=== PATIENT | male | born 1945 | race Caucasian/White ===

== ENCOUNTER → 2023-03-27 06:32 | Day surgery (SDC) | payer MEDICARE, BC, SELFPAY | LOC: GI 06:32 | PROVIDERS: ATTENDING PHYSICIAN Specialist | DX: Z12.11 Encounter for screening for malignant neoplasm of colon (principal); R00.1 Bradycardia, unspecified; Z53.8 Procedure and treatment not carried out for other reasons; Z86.010 Personal history of colon polyps | CPT/HCPCS: G0105; 93005 ==

== ENCOUNTER 2023-05-24 07:12 | Day surgery (SDC) | payer MEDICARE, BC, SELFPAY ==
[2023-05-24] VITALS (9 sets, daily range): BP systolic 90–174; BP diastolic 51–88; BMI 31.0
[2023-05-24 08:13] LABS: ALT (SGPT) 26 U/L (0-50); AST (SGOT) 36 U/L (17-59); Albumin 4.5 g/dl (3.5-5.0); Alkaline Phosphatase 96 U/L (38-126); Blood Urea Nitrogen 16 mg/dl (9-20); Calcium 9.5 mg/dl (8.4-10.2); Carbon Dioxide 26 mmol/L (22-30); Chloride 104 mmol/L (98-107); Estimated Creatinine Clearance 97 ml/min; Glucose 114 mg/dl (70-99); Potassium 4.3 mmol/L (3.5-5.1); Sodium 135 mmol/L (135-145); Total Bilirubin 0.9 mg/dl (0.2-1.3); Total Protein 7.2 g/dl (6.3-8.2); eGFR > 60.00
[2023-05-24 08:24] LABS: Hematocrit 40.5 % (39.0-52.0); Mean Corp Hgb Conc. 34.6 g/dL (33.0-37.0); Mean Corpuscular Hgb 31.3 pg (27.0-31.0); Mean Corpuscular Volume 90.4 fL (80.0-94.0); Mean Platelet Volume 11.5 fL (7.4-10.4); Platelet Count 134 10^3/uL (130-400); Red Blood Cell Count 4.48 10^6/uL (4.70-6.10); Red Cell Dist. Width 13.4 % (11.5-14.5); White Blood Cell Count 4.6 10^3/uL (4.8-10.8)
[2023-05-24 09:45] LABS: ACT-LR - POC 294 Seconds (116-155)
--- NOTE | 2023-05-24 10:08 | ITS.CL.CATH ---
Children Counselor - Catheterization
Cardiac Catheterization
Procedure Report:
LEFT HEART CATHETERIZATION
Date of Procedure: May 24, 2023
Referring: Best Hudson D.O.
PROCEDURES:
1. Left heart catheterization, coronary angiogram.
2. Ultrasound-guided access.
3. Functional physiologic assessment using IFR of proximal RCA.
INDICATION: Mr. Fu is a 77-year-old gentleman with past medical history of hyperlipidemia, significantly elevated coronary calcium score, frequent PVCs, hypertension who had 1 isolated episode of atypical chest discomfort which was left-sided
lasting a few seconds and ongoing dyspnea on exertion with frequent PVCs and is now being referred for a left heart catheterization to rule out obstructive CAD and ischemic PVCs. His outpatient echocardiogram is scheduled in June.
ACCESS: Right radial artery, 6 Setswana sheath, under ultrasound guidance
HEMODYNAMICS : (mmHg)
AO (s/d) : 125/70
LV (s/d) : 123/10
LVEDP : 16
CORONARY FINDINGS
DOMINANCE: Right
LEFT MAIN: Left main artery is a large-caliber vessel which gives rise to the left anterior descending artery and the left circumflex artery. There is mild diffuse atherosclerotic plaque.
LEFT ANTERIOR DESCENDING: The left anterior descending artery is a large-caliber vessel which gives rise to 2 small to medium caliber diagonal branches as it courses through the anterior interventricular groove towards the apex. There is mild to
moderate degree of ectasia and coronary slow flow was noted which improves with intracoronary nitroglycerin. There is a 50 to 60% ostial D2 stenosis.
CIRCUMFLEX: The left circumflex artery is a medium to large caliber vessel which gives rise to 1 major branching obtuse marginal branch and a medium caliber left posterolateral branch. Left circumflex and its branches are moderately ectatic with
slow flow which improves with intracoronary nitroglycerin. There is mild diffuse atherosclerotic plaque.
RIGHT CORONARY ARTERY: The right coronary artery is a large-caliber, dominant vessel which gives rise to the right posterior descending artery and the right posterolateral system. There is a 60 to 70% proximal RCA focal napkin ring stenosis and 40
to 50% distal RCA stenosis before the takeoff of the RPDA. iFR was performed to assess the proximal RCA stenosis which was negative at 0.96.
HEMODYNAMIC ASSESSMENT OF THE PROXIMAL RCA WITH A VOLCANO OMNI WIRE: The origin of the right coronary artery was cannulated with a 6 Fr JR4 guide catheter. Intravenous heparin was administered and the ACT was followed during the procedure. Two
hundred micrograms of intracoronary nitroglycerin was given through the guide catheter. A [place] Omni wire was advanced to the guide catheter tip and normalized in the ostial RCA. The Omni wire was then carefully manipulated across the stenosis
in the proximal RCA with the iFR above the ischemic threshold serially measuring 0.97, 0.97, and 0.96. The Omni wire was then pulled back to the ostial RCA where the Pd/Pa measured 1.0 confirming no baseline drift in pressure readings.
SEDATION: 36 minutes of procedural sedation was utilized. An independent medical pathology teacher was present to assist with and help manage the patient's level of consciousness and physiologic status.
RADIATION SUMMARY: Fluoro Time (min): 5.7, Dose (mGy): 401.46, DAP (Gy.cm2) : 28.5
Closure Device: Vascular band over right radial artery, 11 cc of
CONCLUSIONS
1. Coronary arteries are moderately ectatic in nature with diffuse coronary slow flow which improves with intracoronary nitroglycerin.
2. Proximal RCA has a 60 to 70% focal napkin ring-type stenosis which is IFR negative at 0.96.
3. 40 to 50% distal RCA stenosis.
4. There is 50 to 60% ostial D2 stenosis which is a small caliber vessel.
5. Mildly elevated LVEDP at 16 mmHg
RECOMMENDATIONS
1. Wean radial band per protocol.
2. Full echocardiogram as scheduled to assess biventricular function and rule out any significant valvular disease.
3. Aggressive management of cardiovascular risk factors.
4. Defer management of PVCs and Mobitz type I heart block to primary rn internship.
Copy to: Best Hudson D.O.
Rosa Isela Bullock MD, FACC, [facility]
== END 2023-05-24 12:57 | disposition home or self-care (01) ==
LOC: CATH 07:12
PROVIDERS: ATTENDING PHYSICIAN Internal Medicine Interventional Cardiology; FAMILY PHYSICIAN Family Medicine; OTHER PHYSICIAN Internal Medicine Cardiovascular Disease
DX: I25.10 Atherosclerotic heart disease of native coronary artery without angina pectoris (principal); I10 Essential (primary) hypertension; E78.5 Hyperlipidemia, unspecified; R07.89 Other chest pain; R06.09 Other forms of dyspnea
CPT/HCPCS: 99152; 99153; 76937; 80053; 85027; 85347; 93458; 93571; C1769; C1894

== ENCOUNTER → 2023-07-04 12:44 | Outpatient (REF) | payer MEDICARE, BC, SELFPAY ==
[2023-07-04 15:57] LABS: ALT (SGPT) 27 U/L (0-50); AST (SGOT) 39 U/L (17-59); Total CK 158 U/L (55-170)
[2023-07-04 16:08] LABS: CKMB 3.4 ng/ml (0.0-2.4)
== END ==
LOC: HWRCS 12:44
PROVIDERS: ATTENDING PHYSICIAN Internal Medicine Cardiovascular Disease; FAMILY PHYSICIAN Family Medicine
DX: R07.89 Other chest pain (principal); R06.09 Other forms of dyspnea; I49.3 Ventricular premature depolarization
CPT/HCPCS: 36415; 82550; 82553; 84450; 84460; 93306

== ENCOUNTER 2023-09-21 12:49 | Day surgery (SDC) | payer MEDICARE, BC, SELFPAY ==
[2023-09-21 13:18] VITALS: BMI 31.0
[2023-09-21 13:20] LABS: Hematocrit 35.4 % (39.0-52.0); Hemoglobin 12.3 g/dL (13.0-18.0); Mean Corp Hgb Conc. 34.7 g/dL (33.0-37.0); Mean Corpuscular Hgb 31.3 pg (27.0-31.0); Mean Corpuscular Volume 90.1 fL (80.0-94.0); Mean Platelet Volume 11.5 fL (7.4-10.4); Platelet Count 194 10^3/uL (130-400); Red Blood Cell Count 3.93 10^6/uL (4.70-6.10); Red Cell Dist. Width 13.4 % (11.5-14.5); White Blood Cell Count 5.3 10^3/uL (4.8-10.8)
[2023-09-21 13:40] LABS: Blood Urea Nitrogen 18 mg/dl (9-20); Calcium 9.3 mg/dl (8.4-10.2); Carbon Dioxide 24 mmol/L (22-30); Chloride 104 mmol/L (98-107); Estimated Creatinine Clearance 83 ml/min; Glucose 97 mg/dl (70-99); Potassium 4.3 mmol/L (3.5-5.1); Sodium 137 mmol/L (135-145); eGFR > 60.00
[2023-09-21 14:30] VITALS: BP 143/87
[2023-09-21 17:09] VITALS: BP 168/74
--- NOTE | 2023-09-21 17:09 | ITS.CL.PACE ---
Retail Advertising Account Executive - Pacemaker Implant
Pacemaker Implant
Procedure Report:
Primary Care Doctor: Nikkie Leigh MD
Primary Bulbs Farmworker: Ellen Virgen MD
Procedure Date: 09/21/2023
Name of procedure:
1. Placement of a dual-chamber pacemaker with left bundle area pacing lead for conduction system pacing
2. Subclavian venography
History:
1. Patient is a pleasant 77-year-old male with a past medical history significant for hypertension, hypercholesterolemia, PVCs, symptomatic irreversible bradycardia/sick sinus syndrome.
2. Please refer to H&P for complete history.
Indication:
Symptomatic sick sinus syndrome
Irreversible sinus bradycardia
Intermittent AV block second-degree type I symptomatic
Methods:
After informed consent was obtained, the patient was brought to the EP laboratory in a postabsorptive, nonsedated state. Peripheral IV access was established. Prophylactic antibiotics were administered prior to incision. Continuous ECG, blood
pressure, and pulse oximetry were initiated. Cardioversion patch electrodes were placed on the patient's chest and back. A grounding patch was applied to the skin. Sedation was administered by anesthesia services.
In order to define the extrathoracic portion of the subclavian vein and exclude significant venous obstruction or anomalous anatomy, subclavian venography was performed prior to the procedure. Using the patient's left peripheral IV, contrast was
injected and images were recorded. The left subclavian vein and SVC were found to be widely patent.
The left chest was prepared and draped in a sterile fashion. A time-out was performed. Local anesthesia was injected in the subcutaneous tissue in the infraclavicular area. An incision was made medial to the deltopectoral groove. The subcutaneous
tissue was dissected the level of the prepectoral fascia. A subcutaneous pocket was created. Under fluoroscopic guidance and with the assistance of the images from the venogram, 2 separate venipunctures were made using micropuncture and modified
Seldinger technique. These were performed in the extrathoracic portion of the subclavian vein. Guidewires were passed and two peel-away sheaths were placed, and used to advance leads into the circulation.
Fluoroscopy was used to determine likely anatomic site for left bundle branch pacing. The Medtronic C315 sheath was used to deliver the Medtronic 3830 Selectsecure pacing lead with the helix exposed just exposed from the sheath tip during continuous
monitoring when pacemapping the septum during gentle clockwise rotation to obtain a paced QRS morphology of a W pattern in lead V1. Once the suspected optimal site was identified, lead deployment was performed with several rapid rotations as paced
QRS morphology was intermittently monitored until a paced QRS complex in lead V1 demonstrated development of an R wave (qR or rSR). Unipolar pacing impedance dropped by approximately 100-200 ohms suggesting it had reached the left ventricular
subendocardial. Stable VEgm injury current is present throughout lead position and at end of case. Final unipolar pacing impedance is 1200 Ohms. Unipolar pacing threshold is stable at 1.0 V @ 0.4 ms. The patient had pre-existing narrow QRS. Final
conduction system paced QRS complex duration is 117 ms, LVAT is 53 ms, and peak V5 -> peak V1 timing is 74 ms. The C315 sheath was slit under fluoroscopy ensuring lead position and stability.
Next, the right atrial lead was positioned in the right atrial appendage. Adequate sensing and pacing parameters were found, and no diaphragmatic stimulation was seen with high-output pacing. Both sheaths were split, and the leads were secured to
the fascia with Ethibond ties.
The pocket was flushed with antibiotic solution and hemostasis was assured. The generator was connected to the leads and placed inside the pocket. The device was sutured to the fascia. The wound was closed with 3 running layers of absorbable
suture, and steri-strips were applied. Dressing applied over steri-strips in standard fashion.
Following the procedure, the patient was taken to the recovery area in stable condition. A chest x-ray to be obtained post procedure as routine.
Lead parameters and device programming:
- RA Lead (Medtronic, [id number], #[id number]): Sensing 1.8 mV, Pacing threshold 1.0 V at 0.4 ms, Imp 475 Ohm
- RV Lead (Medtronic, Model 3830, #[id number]): Sensing 12.6 mV, Pacing threshold 0.75 V at 0.4 ms, Imp 665 Ohm
- Device: Medtronic, Model [id number] pacemaker (#[id number]), programmed AAIR to DDDR, mode switch on, lower rate 60 upper track rate 130
Conclusions:
1. Successful placement of a dual-chamber pacemaker with conduction system pacing (LBBAP)
2. Subclavian venography
Recommendations:
1. Admit
2. Chest x-ray.
3. IV antibiotics while the patient is admitted.
4. OK to resume home medications as indicated
5. Pressure dressing to be removed in AM, aquacell to remain until wound check
6. Follow-up will be arranged in the office in 7-10 days post-discharge
Mono Hudson,
Clinical Cardiac Laborer [employer]
cc: Nikkie Leigh MD; Ellen Virgen MD
[2023-09-21 17:30] VITALS: BP 175/95
[2023-09-21] MEDS: TYLENOL 650 MG PO ×2 (17:41→21:51)
[2023-09-21 18:21] VITALS: BP 126/115
--- NOTE | 2023-09-21 18:55 | PTCARENOTE ---
Pt received post pacemaker insertion in left anterior chest. Dressing dry and intact, large pressure dressing placed over aquacell . Immobilizer in place. Pt given tylenol for 4/10 incisional discomfort with some relief. Pt OOB independently,
activity restrictions reviewed with him and his . Pt voiding in small amounts of 100 mls. Telemetry shows atrial paced rhythm.
[2023-09-21] MEDS: ANCEF 5 IV (20:09)
[2023-09-21] MEDS: CRESTOR 20 MG PO (21:51)
[2023-09-22 00:22] VITALS: BP 146/90
[2023-09-22 00:34] VITALS: BP 180/101
[2023-09-22 05:27] VITALS: BP 162/86
[2023-09-22] MEDS: ANCEF 5 IV (05:31)
[2023-09-22 06:00] VITALS: BMI 30.9
[2023-09-22 06:29] LABS: Hematocrit 33.6 % (39.0-52.0); Hemoglobin 11.8 g/dL (13.0-18.0); Mean Corp Hgb Conc. 35.1 g/dL (33.0-37.0); Mean Corpuscular Hgb 31.4 pg (27.0-31.0); Mean Corpuscular Volume 89.4 fL (80.0-94.0); Mean Platelet Volume 11.1 fL (7.4-10.4); Platelet Count 179 10^3/uL (130-400); Red Blood Cell Count 3.76 10^6/uL (4.70-6.10); Red Cell Dist. Width 13.5 % (11.5-14.5); White Blood Cell Count 5.2 10^3/uL (4.8-10.8)
[2023-09-22 06:56] LABS: Blood Urea Nitrogen 16 mg/dl (9-20); Calcium 9.3 mg/dl (8.4-10.2); Carbon Dioxide 23 mmol/L (22-30); Chloride 108 mmol/L (98-107); Estimated Creatinine Clearance 110 ml/min; Glucose 99 mg/dl (70-99); Potassium 4.2 mmol/L (3.5-5.1); Sodium 138 mmol/L (135-145); eGFR > 60.00
[2023-09-22] MEDS: TYLENOL 650 MG PO (07:50)
[2023-09-22] MEDS: COZAAR 100 MG PO (07:50)
[2023-09-22 07:56] VITALS: BP 160/84
[2023-09-22] MEDS: ZETIA 10 MG PO (07:56)
[2023-09-22] MEDS: ASPIR LOW (ENTERIC COATED) 81 MG PO (07:56)
[2023-09-22 08:00] VITALS: BP 155/83
--- NOTE | 2023-09-22 08:16 | W.PN.CARDCBS ---
Addendum entered and electronically signed by Nghia Virgen MD 09/22/23 09:15:
Patient seen, interviewed and examined by me.
Well-appearing, no acute distress
Dressing left upper chest is clean and dry
Regular rate and rhythm with normal S1 and S2, no S3 no S4. There is a grade 1/6 apical holosystolic murmur and no rubs. PMI is normally placed.
Lungs are clear to auscultation bilaterally without wheezes rales or rhonchi.
Abdomen soft nontender nondistended with normoactive bowel sounds
Extremities show trace pretibial edema bilaterally no clubbing or cyanosis.
Neurologic exam is grossly nonfocal.
Agree with advanced practice professionals assessment and plan as noted below
Resume BB
Wound check arranged
Stable for DC home
total DC time 35 min
Original Note:
Today's Communication / Plan
-
Doing well postop day 1
Wound care and postop instructions reviewed
Continue current medical therapy without change
Stable for discharge with follow-up cardiology Care arranged
Impression / Plan
-
PCP: Nikkie Leigh
Bottler Helper: Ellen Virgen
Facilities Officer: Mono Hudson
Impression:
Symptomatic irreversible bradycardia/sick sinus syndrome
Intermittent AV block second-degree type I
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
Nonobstructive coronary artery disease
Hypertension
Hyperlipidemia
PVCs
Renal cyst
BPH
Echo 07/04/2023: EF 55 to 60%, mild concentric LVH, mild biatrial enlargement, no significant valvular disease, mildly dilated aorta sinus of Valsalva 4.1 cm, ST junction 3.0 cm, ascending ao 3.5 cm
Cardiac catheterization 05/24/2023: Coronary arteries are moderately ectatic in nature with diffuse coronary slow flow which improves with intracoronary nitroglycerin. Proximal RCA has a 60 to 70% focal napkin ring-type stenosis which is IFR
negative at 0.96. 40 to 50% distal RCA stenosis. There is 50 to 60% ostial D2 stenosis which is a small caliber vessel. Mildly elevated LVEDP at 16 mmHg
Plan:
-Symptomatic irreversible bradycardia/sick sinus syndrome/intermittent AV block status post dual-chamber Medtronic pacemaker 09/21/2023
-Patient feels great following pacemaker implant. Able to ambulate around unit without cardiac symptoms.
-Pacemaker site stable without hematoma.
-Post procedure EKG shows a paced rhythm at 60 bpm. Review of telemetry occasional PVCs with primarily a paced rhythm
-Postprocedure chest x-ray shows good lead placement and no pneumothorax
-Continue metoprolol, losartan for hypertension
-Continue rosuvastatin and Zetia
-Postop instructions discussed with patient
-Stable for discharge with outpatient cardiology follow-up arranged
Progress Note - Bottler Helper
Subjective
Date of Service: September 22, 2023
Patient seen and examined. Patient sitting up in chair. Patient reports he is feeling well. Denies any specific cardiac complaints. Does note mild throat soreness. Able to ambulate around unit without difficulty.
Objective
Labs:
09/22/23 05:58
09/22/23 05:58
Labs
Hgb 11.8 g/dL (13.0-18.0) L 09/22/23 05:58
Hct 33.6 % (39.0-52.0) L 09/22/23 05:58
Plt Count 179 10^3/uL (130-400) 09/22/23 05:58
Sodium 138 mmol/L (135-145) 09/22/23 05:58
Potassium 4.2 mmol/L (3.5-5.1) 09/22/23 05:58
BUN 16 mg/dl (9-20) 09/22/23 05:58
Creatinine 0.6 mg/dL (0.7-1.3) L 09/22/23 05:58
Glucose 99 mg/dl (70-99) 09/22/23 05:58
Vital Signs and I&O:
Vital Signs
Temp Pulse Resp BP Pulse Ox
98.3 F 60 18 155/83 97
09/22/23 05:27 09/22/23 07:50 09/22/23 08:00 09/22/23 08:00 09/22/23 08:00
Vital Signs
Temp Pulse Resp BP Pulse Ox
98.3 F 60 18 155/83 97
09/22/23 05:27 09/22/23 07:50 09/22/23 08:00 09/22/23 08:00 09/22/23 08:00
Intake & Output
09/20/23 09/21/23 09/22/23 09/23/23
06:59 06:59 06:59 06:59
Intake Total 690 / 690
Output Total 100 / 100
Balance 590 / 590
Physical Exam
Physical Exam
GEN: No distress, awake, Ox3
HEENT: supple, anicteric, mmm
LUNGS: CTA, no wheezes/rales
CV: Reg, S1/S2, no murmur, rub or gallop
ABD: soft, BS+, NT/ND
EXT: No edema, clubbing or cyanosis; pacemaker dressing clean, dry, intact, no evidence of hematoma or infection
NEURO: Gross non-focal
SKIN: No rash, warm, dry, pink
--- NOTE | 2023-09-22 08:55 | PTCARENOTE ---
pt continues to be paced on the monitor, hr in the 70s, vss. pt c/o pain at incision site, Tylenol given as ordered, see MAR. pt educated on plan of care and pt verbalized understanding. call thapa within reach.
--- NOTE | 2023-09-22 08:56 | W.DS.TRANS ---
DC Summary - Radiology Therapist
-
Discharge Instructions:
Discharge Diagnosis/Procedures Heart block, s/p pacemaker implant
Diet Low Cholesterol
Driving Restrictions No driving for 1 week
Bathing Restrictions OK to Shower
Instructions:
Stand-Alone Forms: DC Inst - Implanted Device
Changes to Home Medications: No
Discharge Medications:
DC Medications w/original date entered in [facility]
losartan 100 mg tablet 100 mg PO DAILY 03/20/16
ascorbic acid (vitamin C) 500 mg tablet (Vitamin C) 1,000 mg PO DAILY 05/24/23
aspirin 81 mg tablet,delayed release 81 mg PO DAILY 05/24/23
ezetimibe 10 mg tablet (Zetia) 10 mg PO DAILY 05/24/23
cnyesmdyvwq-qmwhgtftc-aom C-Mn 500 mg-400 mg capsule 1 cap PO DAILY 05/24/23
multivitamin 2 tab PO DAILY ##0 05/24/23
omega-3 fatty acids-fish oil 684 mg-1,200 mg capsule,delayed release 1 cap PO DAILY 05/24/23
psyllium 1 packet PO DAILY 05/24/23
albuterol sulfate 90 mcg/actuation aerosol inhaler 1 puff inhalation Q4HPRN PRN wheezing 09/21/23
ginkgo biloba 400 mg capsule 400 mg PO DAILY 09/21/23
glucosamin 375 mg-chond 300 mg-collagen 50 mg-hyaluronic acid 2 mg cap 2 cap PO DAILY 09/21/23
metoprolol succinate 25 mg tablet,extended release 24 hr 12.5 mg (1/2 x 25 mg) PO DAILY #0 tabs 09/21/23
rosuvastatin 20 mg tablet 20 mg PO HS 09/21/23
Home Medication Changes
Pending Results: No
Total time spent discharging patient (in min): 33
[2023-09-22] MEDS: TOPROL XL 12.5 MG PO (09:10)
--- NOTE | 2023-09-22 10:12 | PTCARENOTE ---
d/c instructions read to pt and pt verbalized understanding. ppm site is CDI, immobilizer on. iv and tele removed. pt left w/ belongings from room, instructions and ppm info. pt left via wheelchair with staff member.
--- NOTE | 2023-09-22 17:33 | EDRN ---
Cliff Reed and this RN got verbal consent over the phone for blood exposure labs to be done.
--- NOTE | 2023-09-22 17:42 | EDRN ---
"pt had a procedure in laborer bituminous paving on September 20 and the NEWSPAPER CARRIER who was taking care of Mr. Fu may have gotten blood splattered into his left eye. The NEWSPAPER CARRIER came into the ER Sundayseptember 21 for blood exposure testing. At this time, Cliff SHER (~) and this RN called Ford Fu to obtain verbal consent over the phone for blood exposure testing. Mr Ford Fu gave verbal consent to Michael SHER and this RN. Cliff Reed will call Mr. Fu back with results."
[2023-09-22 19:17] LABS: HIV Combo Negative (Negative)
[2023-09-22 19:30] LABS: Hepatitis B Surface Antigen Negative (Negative)
[2023-09-22 19:48] LABS: Hepatitis B Surface Antibody Negative
[2023-09-22 20:55] LABS: Hepatitis C Antibody Negative (Negative)
== END 2023-09-22 10:21 | disposition home or self-care (01) ==
LOC: CATH 12:49
PROVIDERS: Nurse Practitioner; ATTENDING PHYSICIAN Internal Medicine Cardiovascular Disease; FAMILY PHYSICIAN Family Medicine
DX: I44.1 Atrioventricular block, second degree (principal); I47.10 Supraventricular tachycardia, unspecified; I47.20 Ventricular tachycardia, unspecified; I10 Essential (primary) hypertension; N40.0 Benign prostatic hyperplasia without lower urinary tract symptoms; R53.83 Other fatigue; R06.09 Other forms of dyspnea; Z79.899 Other long term (current) drug therapy; Z79.82 Long term (current) use of aspirin; I49.5 Sick sinus syndrome; R00.8 Other abnormalities of heart beat
CPT/HCPCS: 33208; 71045; 80048; 85027; 86706; 86803; 87340; 87389; 93005; C1769; C1785; C1887; C1892; C1898; Q9967

== ENCOUNTER 2023-10-04 11:28 | Inpatient (IN) | payer MEDICARE, BC, SELFPAY ==
[2023-10-04] VITALS (30 sets, daily range): BP systolic 89–189; BP diastolic 56–113; PULSE 80–89; BMI 31.8
[2023-10-04 06:52] LABS: % Basophils 0.5 % (0-2); % Eosinophils 1.1 % (0-6); % Immature Granulocytes 0.4 % (0-0.5); % Lymphocytes 16.6 % (20.5-51.1); % Monocytes 6.5 % (1.7-9.3); % Neutrophils 74.9 % (42.2-75.2); Absolute Eosinophils 0.1 10^3/uL (0-0.7); Absolute Lymphocytes 1.3 10^3/uL (1.2-3.4); Absolute Monocytes 0.5 10^3/uL (0.1-0.6); Mean Corp Hgb Conc. 34.4 g/dL (33.0-37.0); Mean Corpuscular Hgb 31.4 pg (27.0-31.0); Mean Corpuscular Volume 91.4 fL (80.0-94.0); Mean Platelet Volume 10.8 fL (7.4-10.4); Nucleated Red Blood Cells % 0 % (-); Platelet Count 155 10^3/uL (130-400); Red Cell Dist. Width 13.8 % (11.5-14.5)
[2023-10-04 07:02] LABS: ALT (SGPT) 22 U/L (0-50); AST (SGOT) 39 U/L (17-59); Albumin 3.9 g/dl (3.5-5.0); Alkaline Phosphatase 101 U/L (38-126); Blood Urea Nitrogen 19 mg/dl (9-20); Calcium 9.2 mg/dl (8.4-10.2); Carbon Dioxide 24 mmol/L (22-30); Chloride 104 mmol/L (98-107); Estimated Creatinine Clearance 84 ml/min; Glucose 200 mg/dl (70-99); Potassium 4.4 mmol/L (3.5-5.1); Sodium 138 mmol/L (135-145); Total Bilirubin 0.7 mg/dl (0.2-1.3); Total Protein 6.1 g/dl (6.3-8.2); eGFR > 60.00
--- NOTE | 2023-10-04 07:06 | EDRN ---
Tejinder SHER in room w/ pt at this time.
[2023-10-04 07:13] LABS: NT-proBNP 187 pg/ml; Troponin I 0.014 ng/ml
--- NOTE | 2023-10-04 07:26 | ED.GENMED ---
History of Present Illness
<Prince Rothman Jr., PA-C - Last Filed: 10/04/23 09:16>
General
Chief Complaint: Fainting Sensation
Source: patient
Exam Limitations: none
Time Seen by Provider: 10/04/23 07:03
Nursing documentation reviewed up to this point in time: agreed with
History of Present Illness
History of Present Illness:
77-year-old male past medical history of previous A-fib pacemaker placed 2 weeks ago. This morning woke up and went to the kitchen to prepare breakfast start feel lightheaded cool clammy was able to sit down before passing out. Denies any chest
pain shortness of breath nausea associated. Did feel some discomfort to his neck and throat. Still with some mild pain to the neck but denies additional symptoms otherwise. He does claim that he recently increased her metoprolol from 12.5-25 last
week. Denies ongoing symptoms at this point otherwise.
Past History
<Prince Rothman Jr., PA-C - Last Filed: 10/04/23 09:16>
Past History
ED Past Medical History: HTN
Social History
Tobacco: Non-smoker
Alcohol: None
Family History
Family History: Negative Diabetes
Review of Systems
<Prince Rothman Jr., PA-C - Last Filed: 10/04/23 09:16>
Review of Systems
Allergies reviewed?: Yes
All Other Systems: ROS reviewed and negative except as documented in HPI and ROS
Phy Exam
<Prince Rothman Jr., PA-C - Last Filed: 10/04/23 09:16>
Physical Exam
Physical Exam:
GENERAL: Alert , in no apparent distress
EYE: pupils equal and reactive
NECK: Supple, no significant adenopathy.
ENT: o/p clr, mmm.
CARDIAC: Regular rate and rhythm .
LUNGS: Clear breath sounds bilaterally, no acute respiratory distress, no wheezes/rales/rhonchi
ABDOMEN: Soft, without focal tenderness, no r/g, no cvat
NEUROLOGICAL: Alert and oriented, no focal neuro deficits
SKIN: Warm and dry, skin intact.
MUSCULOSKELETAL: No edema, well perfused.
PSYCH: Normal and appropriate interaction.
Course
<Prince Rothman Jr., TAY - Last Filed: 10/04/23 09:16>
Orders/Labs/Results
Orders:
Orders
10/04/23 06:01
EKG [Electrocardiogram (*1)] Urgent
Reason for Study: Fatigue / Weakness
10/04/23 06:02
EKG- Treatment ONCE
10/04/23 06:36
Cardiac Monitoring- Treatment ONCE
IV Insert/Care/Rem.- Treatment PRN
Interrogate Pacemaker- Treatment ONCE
10/04/23 06:42
Complete Blood Count/With Diff Urgent
Comprehensive Metabolic Panel Urgent
NT-proBNP Urgent
TSH Reflex To Free T4 Urgent
Comment: ADD ON
Troponin I Urgent
10/04/23 07:14
Add On- LAB Urgent
Tests Added?: tsh free t4
Orthostatic VS- Treatment ONCE
10/04/23 07:32
Echo 2D MMode Color/Doppler Urgent
Reason for Study: recent pacemaker insertion rule out fusion
Cardiology Consult: Ellen Virgen
10/04/23 08:57
0.9% Sodium Chloride 500 ml [Nss] 500 ml IV BOLUS
10/04/23 09:06
0.9% Sodium Chloride 500 ml [Nss] 500 ml IV BOLUS
10/04/23 09:07
0.9% Sodium Chloride 500 ml [Nss] 1,000 ml IV BOLUS
10/04/23 09:15
DOPamine 400 MG/D5W 250 ML [DOPamine 400 MG] 400 mg in 250 ml IV PER PROTOCOL
Initial dose in mcg/kg/min, then titrate:: 5
Titrate to keep:: Other
Titrate to keep other:: SBP >100
Titrate by mcg/kg/min:: 1-2 mcg/kg/min
Frequency of titrations (minutes):: 15
Maximum dose in ICU in mcg/kg/min:: 20
Maximum dose in IMU in mcg/kg/min:: 10
Begin to taper infusion when:: Remained at goal for 4hrs
Taper by mcg/kg/min:: 1-2 mcg/kg/min
Frequency of taper (minutes) if patient maintains goal:: 30
Taper to off?: Yes
If infusion off & no longer maintaining goal:: Contact Provider
Abnormal Lab Results
10/04/23
06:42
RBC 3.50 L 10^6/uL
(4.70-6.10)
Hgb 11.0 L g/dL
(13.0-18.0)
Hct 32.0 L %
(39.0-52.0)
MCH 31.4 H pg
(27.0-31.0)
MPV 10.8 H fL
(7.4-10.4)
Lymphocytes % 16.6 L %
(20.5-51.1)
Glucose 200 H mg/dl
(70-99)
Total Protein 6.1 L g/dl
(6.3-8.2)
10/04/23 06:42
10/04/23 06:42
Vital Signs
Initial and Last Documented VS:
Initial Vital Signs
Pulse Resp
73 15
10/04/23 06:18 10/04/23 06:18
Last Documented Vital Signs
Pulse Resp BP Pulse Ox
83 29 113/71 98
10/04/23 09:04 10/04/23 09:04 10/04/23 09:04 10/04/23 09:11
<Toño Scott, DO - Last Filed: 10/04/23 09:12>
Orders/Labs/Results
Orders:
Orders
10/04/23 06:01
EKG [Electrocardiogram (*1)] Urgent
Reason for Study: Fatigue / Weakness
10/04/23 06:02
EKG- Treatment ONCE
10/04/23 06:36
Cardiac Monitoring- Treatment ONCE
IV Insert/Care/Rem.- Treatment PRN
Interrogate Pacemaker- Treatment ONCE
10/04/23 06:42
Complete Blood Count/With Diff Urgent
Comprehensive Metabolic Panel Urgent
NT-proBNP Urgent
TSH Reflex To Free T4 Urgent
Comment: ADD ON
Troponin I Urgent
10/04/23 07:14
Add On- LAB Urgent
Tests Added?: tsh free t4
Orthostatic VS- Treatment ONCE
10/04/23 07:32
Echo 2D MMode Color/Doppler Urgent
Reason for Study: recent pacemaker insertion rule out fusion
Cardiology Consult: Ellen Virgen
10/04/23 08:57
0.9% Sodium Chloride 500 ml [Nss] 500 ml IV BOLUS
10/04/23 09:06
0.9% Sodium Chloride 500 ml [Nss] 500 ml IV BOLUS
10/04/23 09:07
0.9% Sodium Chloride 500 ml [Nss] 1,000 ml IV BOLUS
10/04/23 09:15
DOPamine 400 MG/D5W 250 ML [DOPamine 400 MG] 400 mg in 250 ml IV PER PROTOCOL
Initial dose in mcg/kg/min, then titrate:: 5
Titrate to keep:: Other
Titrate to keep other:: SBP >100
Titrate by mcg/kg/min:: 1-2 mcg/kg/min
Frequency of titrations (minutes):: 15
Maximum dose in ICU in mcg/kg/min:: 20
Maximum dose in IMU in mcg/kg/min:: 10
Begin to taper infusion when:: Remained at goal for 4hrs
Taper by mcg/kg/min:: 1-2 mcg/kg/min
Frequency of taper (minutes) if patient maintains goal:: 30
Taper to off?: Yes
If infusion off & no longer maintaining goal:: Contact Provider
Abnormal Lab Results
10/04/23
06:42
RBC 3.50 L 10^6/uL
(4.70-6.10)
Hgb 11.0 L g/dL
(13.0-18.0)
Hct 32.0 L %
(39.0-52.0)
MCH 31.4 H pg
(27.0-31.0)
MPV 10.8 H fL
(7.4-10.4)
Lymphocytes % 16.6 L %
(20.5-51.1)
Glucose 200 H mg/dl
(70-99)
Total Protein 6.1 L g/dl
(6.3-8.2)
10/04/23 06:42
10/04/23 06:42
Vital Signs
Initial and Last Documented VS:
Initial Vital Signs
Pulse Resp
73 15
10/04/23 06:18 10/04/23 06:18
Last Documented Vital Signs
Pulse Resp BP Pulse Ox
83 29 113/71 98
10/04/23 09:04 10/04/23 09:04 10/04/23 09:04 10/04/23 09:11
<Prince Rothman Jr., PA-C - Last Filed: 10/04/23 09:16>
MDM/Problems Addressed
MDM/Problems Addressed:
77-year-old male presenting to the emergency department today for concerns of lightheadedness cool and clammy prior to arrival while he was in standing up. He was able to sit down prior to passing out. Recently had a pacemaker placed 2 weeks ago.
This was interrogated without significant events. Does have occasional PVCs and occasional bigeminy. He appears very well here in no distress. Does come to have some mild neck pain posterior pharynx is normal in appearance. No upper respiratory
symptoms recently. Labs obtained showing an elevated sugar level of 200 but otherwise labs are normal troponin negative.
0715: Cardiology consulted considering patient's recent pacemaker insertion. Cardiology recommends echo for further assessment while here in the ER.
0850: Received from cardiology about the patient's echo results showing pericardial effusion likely explaining patient's symptoms. Concern for cardiac tamponade patient started on fluids as well as dopamine on reassessment patient is still
asymptomatic here but blood pressure has been trending downward throughout ER stay most recent blood pressure was 89/70 a half an hour prior the blood pressure was 104/76.
<Prince Rothman Jr., PA-C - Last Filed: 10/04/23 09:16>
*Critical Care Note
Total Time (30-74mins, 75-104mins- exclusive of procedures): Critical care statement:
ED Attending Note
<Prince Rothman Jr., PA-C - Last Filed: 10/04/23 09:16>
-
Portions of this chart may have been created with voice recognition software.� Occasional wrong word or��sound alike� substitutions may have occurred due to the inherent limitations of voice recognition software.
<Toño Scott DO - Last Filed: 10/04/23 09:12>
ED Attending Note
Patient seen and examined by attending physician: Yes
I performed the substantive portion of visit, reviewed & personally made and approve the management plan that is documented in note by myself or BREANNE.: Yes
ED Attending Note:
I have seen and evaluated the patient with a [id number] encounter. I have spoken to the advance practicer provider and involved in the medical history, the physical exam, medical decision making.
Evaluation and management service: agree unless noted differently below.
Results interpretation: agree unless noted differently below.
Focused HPI: 77-year-old male presenting with lightheadedness, weakness and fatigue. Patient had pacemaker placed 2 weeks ago
Physical exam: Sitting in bed comfortably. Heart regular rate and rhythm
Medical Decision Making: Echo shows tamponade physiology. Cardiology at bedside immediately. Will bring to the Experimental Physicist. Will consider dopamine pending reassessment after fluid
Discharge Plan
Departure
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
Date of Disposition: 10/04/23
Time of Disposition: 09:15
Admit to: Telemetry
Admit to doctor: Anu
Presentation/result/management discussed w/ accepting MD/DO: Cardiology
Patient with high blood pressure during this ER visit?: No
Condition: Fair
Covid-19: Not Applicable
Discharge Problem:
Acute pericardial effusion
Prescriptions:
No Action
losartan 100 MG tablet
100 mg PO DAILY
aspirin 81 mg Tablet,Delayed Release (Dr/Ec)
81 mg PO DAILY
multivitamin Tablet
2 tab PO DAILY Qty: 0
psyllium Packet
1 packet PO DAILY
ascorbic acid (vitamin C) [Vitamin C] 500 mg Tablet
1,000 mg PO DAILY
ezetimibe [Zetia] 10 mg Tablet
10 mg PO DAILY
uznqefjikvk-zqxbntlhw-dmd C-Mn 500-400 mg Capsule
1 cap PO DAILY
omega-3 fatty acids-fish oil 684-1,200 mg Capsule,Delayed Release(Dr/Ec)
1 cap PO DAILY
albuterol sulfate 90 mcg/actuation Hfa Aerosol Inhaler
1 puff INHALATION Q4HPRN PRN (Reason: wheezing)
rosuvastatin 20 mg Tablet
20 mg PO HS
glirfbnw-bqmd-fjklok-hyalur ac 253-450-60-2 mg Capsule
2 cap PO DAILY
ginkgo biloba 400 mg Capsule
400 mg PO DAILY
metoprolol succinate 25 mg Tablet Extended Release 24 Hr
12.5 mg PO DAILY Qty: 0 0RF
Referrals:
Nikkie Leigh MD [Family Provider] -
Interventions
Interventions:
*Risk Screen - Suicide Last Done: 10/04/23 06:40
*General Assessment Last Done: 10/04/23 06:40
*Neglect/Abuse Screening Last Done: 10/04/23 06:40
ED- Fall Risk Assessment Last Done: 10/04/23 07:24
*ED COVID-19 Vaccine History Last Done: 10/04/23 06:40
ED- Cardiac Assessment Last Done: 10/04/23 07:24
ED- Neurological Assessment Last Done: 10/04/23 07:24
Discharge Date and Time
Print Language: MONEGASQUE
[2023-10-04 08:58] LABS: TSH Reflex To Free T4 2.76 uIU/ml (0.47-4.68)
--- NOTE | 2023-10-04 09:00 | EDRN ---
Tejinder SHER in room w/ pt at this time.
[2023-10-04] MEDS: NSS 1000 IV (09:07)
--- NOTE | 2023-10-04 09:09 | EDRN ---
Dr. Duke was in to see pt. Dr. House in room now w/ pt. Pao w/ cardiology in room w/pt. Interventional radiologist in room w/ pt.
--- NOTE | 2023-10-04 09:20 | CON.CAR ---
Addendum entered and electronically signed by Ellen Virgen MD 10/04/23 10:09:
I saw and examined the patient.
The Studio Associate's note was reviewed and I agree with the note.
Comment: Patient seen and independently examined by me. Tells me that this morning he felt more dizzy, lightheaded and like he was going to pass out. He has not been feeling well. His stated he was sweaty and diaphoretic. Pacemaker implant
approximately 2 weeks ago. Echocardiogram consistent with impending tamponade. Blood pressure had decreased to 89 mmHg systolic. Patient given IV fluids at 100/per hour. Patient stabilized. EKG abnormal with likely noncapture of pacemaker and
intermittent heart block. Consulted electrophysiology and interventional cardiology. Patient will be urgently taken to the cardiac Illustrator Set for pericardiocentesis and for electrophysiology assessment.
Discussed at length with the patient and his at the bedside. They understand the plan.
Critical care time approximately 35 minutes reviewing records, discussing with the ER physicians, nursing staff, cardiac cath staff, EP staff and coordinating care
Original Note:
Consultation
Consultation Request
Date/Time Consultation Performed: 10/04/23
Requesting Provider: Judson Rothman PA-C
Performing Provider: Pao Crawley PA-C for Dr. Ellen Virgen
Reason for Consultation: presyncope
Medical History
-
Chief Complaint: presyncope
History of Present Illness:
Patient is a 77 yo M with PMH of recent Medtr[employer] PPM placement 09/21/23 due to SSS/symptomatic bradycardia who presented to ER this AM with complaints of lightheadedness, presyncope. States he got up to make breakfast this AM and felt cool, clammy,
and lightheaded. He did not have syncope however felt as though he was going to pass out and sat down. Denies CP however notes some discomfort in next/throat. Came to ER for evaluation. EKG with concern for malfunction of PPM. ECHO with evidence of
large pericardial effusion. Hypotensive in ER, improved with IV fluid. Cardiology consulted for evaluation
PMH:
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
Nonobstructive coronary artery disease
Hypertension
Hyperlipidemia
PVCs
Renal cyst
BPH
Past Medical History
Past Medical History: Other (in HPI)
Social History
Tobacco: Former Smoker
Alcohol: Occasional
Personal:
Living: With Family
Employment: Retired
Allergies / Home Medications
Allergy/AdvReac Type Severity Reaction Status Date / Time
No Known Allergies Allergy Verified 10/04/23 06:11
�Medication �Instructions �Recorded �Confirmed �Type
losartan 100 mg tablet 100 mg PO DAILY 03/20/16 09/21/23 History
ascorbic acid (vitamin C) 500 mg 1,000 mg PO DAILY 05/24/23 09/21/23 History
tablet (Vitamin C)
aspirin 81 mg tablet,delayed 81 mg PO DAILY 05/24/23 09/21/23 History
release
ezetimibe 10 mg tablet (Zetia) 10 mg PO DAILY 05/24/23 09/21/23 History
pyfwxkyjnsu-ucufkmcfa-lnp C-Mn 500 1 cap PO DAILY 05/24/23 09/21/23 History
mg-400 mg capsule
multivitamin 2 tab PO DAILY ##0 05/24/23 09/21/23 History
omega-3 fatty acids-fish oil 684 1 cap PO DAILY 05/24/23 09/21/23 History
mg-1,200 mg capsule,delayed release
psyllium 1 packet PO DAILY 05/24/23 09/21/23 History
albuterol sulfate 90 mcg/actuation 1 puff inhalation Q4HPRN PRN 09/21/23 09/21/23 History
aerosol inhaler wheezing
ginkgo biloba 400 mg capsule 400 mg PO DAILY 09/21/23 09/21/23 History
glucosamin 375 mg-chond 300 2 cap PO DAILY 09/21/23 09/21/23 History
mg-collagen 50 mg-hyaluronic acid
2 mg cap
metoprolol succinate 25 mg 12.5 mg (1/2 x 25 mg) PO DAILY #0 09/21/23 Rx
tablet,extended release 24 hr tabs
rosuvastatin 20 mg tablet 20 mg PO HS 09/21/23 09/21/23 History
Review of Systems
-
History Source: Patient and Family
All other systems: Negative unless noted
Physical Exam
Vital Signs
Pulse Resp BP Pulse Ox
83 29 113/71 98
10/04/23 09:04 10/04/23 09:04 10/04/23 09:04 10/04/23 09:11
Lab Results
10/04/23 06:42
10/04/23 06:42
Troponin I 0.014 ng/ml 10/04/23 06:42
Lxa-N-Vjanlfkhjbi Pept 187 pg/ml 10/04/23 06:42
Physical Exam
General: No Apparent Distress and Comfortable
HEENT: Normocephalic, Anicteric and Moist Mucous Membranes
Respiratory: Clear and Non Labored Respirations
Cardiac: S1/S2, Regular Rhythm and Other (ectopy)
GI: Soft, Non Tender, Non Distended and Normal Bowel Sounds
Musculoskeletal: No Clubbing, No Cyanosis and No Edema
Skin: Warm and Dry
Neuro: AO x 3
Impression / Plan
-
PCP: Nikkie Leigh
Arc Cutter Plasma Arc: Ellen Virgen
Fire Regulator: Mono Hudson
Impression:
Presentation with lightheadedness, presyncope
Large pericardial effusion with evidence of tamponade by echo
Hypotension
Concern for PPM lead malfunction/migration
Anemia
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
Nonobstructive coronary artery disease by cath 05/24/23
Hypertension
Hyperlipidemia
PVCs
Renal cyst
BPH
Echo 07/04/2023: EF 55 to 60%, mild concentric LVH, mild biatrial enlargement, no significant valvular disease, mildly dilated aorta sinus of Valsalva 4.1 cm, ST junction 3.0 cm, ascending ao 3.5 cm
Cardiac catheterization 05/24/2023: Coronary arteries are moderately ectatic in nature with diffuse coronary slow flow which improves with intracoronary nitroglycerin. Proximal RCA has a 60 to 70% focal napkin ring-type stenosis which is IFR
negative at 0.96. 40 to 50% distal RCA stenosis. There is 50 to 60% ostial D2 stenosis which is a small caliber vessel. Mildly elevated LVEDP at 16 mmHg
Plan:
-Patient with recent PPM 09/21/23 presents back to ER with lightheadedness, presyncope, clamminess noted this AM.
-echo 10/03 with evidence of large pericardial effusion and degree of tamponade
-concern by review of EKG for lead malfunction/migration
-for urgent pericardiocentesis in slab polisher
-NPO
-hypotension in ER improved with IV fluids. could start dopamine @3 if needed
-may require lead revision following pericardiocentesis
-d/w patient and at bedside. communicated with ER PA/physician. coordinated with slab polisher
-CCT 33 minutes
Data Reviewed
-
EKG: Tracing Personally Visualized and interpreted
Medical Tests (Nuc Med, Echo etc): Report Reviewed by me
Labs: Labs Reviewed by me
Old Records: Reviewed
--- NOTE | 2023-10-04 09:24 | EDRN ---
Gracia LOPEZ received report at this time. Pt to laborer stores now.
[2023-10-04 10:59] LABS: Body Fluid Glucose 84 mg/dl; Body Fluid LDH 306 U/L; Body Fluid Protein 5.4 g/dl
[2023-10-04] MEDS: TORADOL 15 MG IV ×2 (11:00→11:02)
[2023-10-04] MEDS: COLCHICINE 0.6 MG PO ×2 (11:10→20:20)
--- NOTE | 2023-10-04 12:07 | PTCARENOTE ---
Received patient at 1115 after Pericardiocentesis and drain placement left chest. Patient recently here for PPM with healing incision left upper chest. Patient was having 8-10/10 pain post drain placement, patient now appears more comfortable and
states his pain is down to a 1-2/10. Patient seen by Dr. Virgen and to have lead revision later this afternoon. Dressing left chest is dry and intact, bloody drainage in canister, monitoring VS- at the bedside, call thapa in reach.
--- NOTE | 2023-10-04 12:23 | ITS.CL.PN ---
[facility] Care Management - Procedure Note
Procedure
Procedure Note:
PERICARDIOCENTESIS REPORT
Date: October 04, 2023
Referring: Ellenadrianna Wilsonlinette
Indications: Cardiac tamponade
Procedure: Pericardiocentesis via transapical approach under echocardiographic guidance
After obtaining consent, the patient was brought to the cardiac slab lifting supervisor and placed in a recumbent position. Echocardiogram was used to ascertain the best approach vector. An transapical approach was selected. The site was anesthetized with 1%
lidocaine. Under ultrasound guidance, a micropuncture needle was advanced into the pericardial space under negative pressure. After obtaining flashback of pericardial fluid, the micropuncture wire was advanced into the pericardial space and the
needle was removed. The micropuncture sheath was advanced over the wire and the wire and dilator were removed. Agitated saline was injected through the micropuncture sheath confirming its presence in the pericardial space on echocardiography. A
0.035 inch J-wire was advanced through the micropuncture sheath and into the pericardial space. The micropuncture sheath was removed and a 6 Turkish sheath was advanced over the 0.035 inch wire. A pigtail catheter was advanced through the sheath over
the J-wire and placed in the pericardial space. The J-wire was removed. The pericardial pressure was measured. A sufficient sample of pericardial fluid was removed and sent for laboratory testing (hemoglobin, hematocrit, white blood cell count, LDH,
albumin, total protein, cytology and culture). The pigtail catheter was then connected to a Vacutainer and the pericardial space was evacuated. Serial echocardiography confirmed reduction in the pericardial effusion from severe to trace. All
evidence of tamponade was removed. The 6 Turkish sheath was sutured into place. The pigtail catheter was likewise sutured into place then curled around the sheath and covered by a sterile Tegaderm. Repeat pericardial pressure was measured,
confirming significant reduction. The pigtail catheter was then connected to a ROBY drain to suction. The patient reported significant improvement in their shortness of breath.
Procedure Details:
Approach: Transapical
Sheath/Drain size (Fr) 6
Pericardial Volume (mL): 310
Effusion type: Hemorrhagic
Non-effusion blood loss (mL): Minimal
Pericardial pressures
Pre drainage (mmHg): 22
Post drainage (mmHg): 60
RADIATION SUMMARY: Fluoro Time (min): 0.3, Dose (mGy): 5.79, DAP (Gy.cm2) : 0.78
Conclusion:
1. Successful pericardiocentesis via transapical approach under echocardiographic guidance with 310 cc of hemorrhagic pericardial fluid output. Pericardial drain secured in place via a 6 Turkish sheath.
2. Pericardial fluid has been sent for laboratory analysis.
Recommendations:
1. Pain control as needed.
2. Plan to discontinue drain once pericardial output less than 25 cc over 24 hours or once the drain has been in for 5 or more days given increased risk for infection.
Copy to: Ellen Collins, Nghia Virgen
Rosa Isela Bullock MD, FACC, [facility]
[2023-10-04 12:32] LABS: Body Fluid Granulocytes 44 %; Body Fluid Hematocrit 33.9 %; Body Fluid Lymphocytes 41 %; Body Fluid Macrophages 15 %; Body Fluid WBC 440 /CUMM
[2023-10-04 12:34] LABS: Body Fluid Second Tech CMB
[2023-10-04] MEDS: TOPROL XL 25 MG PO (14:12)
[2023-10-04] MEDS: COZAAR 50 MG PO (14:17)
[2023-10-04] MEDS: MORPHINE SULFATE 2 MG IV (14:33)
--- NOTE | 2023-10-04 15:16 | CM ---
Chart reviewed. Patient is independent of ADLS, lives with his , 0 DME. Patient currently with no discharge needs. CM to follow
--- NOTE | 2023-10-04 15:44 | PTCARENOTE ---
Patient complaining of 7/10 pain left chest and neck area after getting oob to use the bathroom, would not use the urinal in the bed. Medicated with morphine 2mg IV with relief. Patient remains NPO for lead revision later today.
--- NOTE | 2023-10-04 17:39 | PTCARENOTE ---
Patient sent to EP lab for lead revision, CHG 2% wipes done prior to transfer.
--- NOTE | 2023-10-04 18:51 | ITS.CL.PACE ---
[facility] - Pacemaker Implant
Pacemaker Implant
Procedure Report:
Right atrial pacing lead removal and replacement:
Date of Procedure: October 04, 2023
Primary Care Doctor: Nikkie Leigh MD
Primary Appraisal Coordinator: Ellen Virgen MD
PROCEDURES:
Removal /extraction of right atrial pacing lead
Implantation of new right atrial pacing lead
INDICATION FOR PROCEDURE:
Dual-chamber permanent pacemaker was implanted September 21, 2023. Patient presented October 04, 2023 with pericardial effusion and underwent pericardiocentesis demonstrating bloody pericardial effusion. Of note the patient was initiated on
anticoagulation approximately 6 days ago. There is concern that right atrial lead tip perforation may be the etiology. Given that the patient will require long-term oral anticoagulation for atrial fibrillation related thromboembolic risk reduction
patient was brought back to the electrophysiology laboratory for removal of the right atrial lead which is suspected to have perforated and reimplantation of a new lead, a tined lead.
The patient was prepped and draped in sterile fashion. Lidocaine with epi was used for local anesthesia. An incision was made along the previous incision and the device and leads were carefully dissected from the pocket. Hemostasis was obtained
with electrocautery. The right atrial lead was from the device header and using a scalpel the outer insulation of the lead was breached and a micropuncture wire was inserted. Active-fixation was withdrawn from the lead. A stylette was
placed within the lead. The lead was advanced so that the micropuncture wire is advanced into the vasculature. At that point the micropuncture and lead were from themselves, the lead was removed and the micropuncture nail maintained
access within the central venous system. The micropuncture dilator and sheath were then advanced over the micropuncture wire. The micropuncture dilator was removed and a standard J-wire was placed. Over this the 7 [place] peel-away sheath was
placed. Through this a tined right atrial lead was advanced to the right atrium and its lead tip was positioned within the right atrial appendage. Adequate pacing and sensing thresholds were obtained. The lead was secured to the pectoral fascia
using the suture sleeve. Lead was then connected to the permanent pacemaker generator. The pocket was liberally irrigated with antibiotic solution. The generator and leads were carefully placed within the pocket. Suture was used to affix the
generator to the pectoral fascia. An antibiotic pouch was placed within the pocket. The pocket was closed in the typical fashion.
EXPLANTED right atrial lead:
Medtronic
Newly implanted right atrial lead:
Medtronic [id number], serial number [id number]
Retained GENERATOR:
Medtronic [id number], [id number]
RETAINED LEADS:
Existing RV lead: [id number], [id number]
DEVICE TESTING:
Sensing: RA 2 mV, RV 20 mV
Capture: RA 0.75 V @ 0.4ms, RV 1 V @ 0.4ms
Ohms: RA 532, RV 530
FINAL PROGRAMMING
[place] Pacing: MVP mode 60-130 ppm
COMPLICATIONS:
None
CONCLUSIONS:
Removal/extraction of right atrial pacing lead
Implantation of new right atrial pacing lead
RECOMMENDATIONS:
Assess pericardial drainage overnight and if stable clamp pericardial drain in the morning and check an echocardiogram several hours later if no additional pericardial effusion is noted the pericardial drain can be removed. Would recommend checking
a limited echo a few hours later and if that is stable patient can be discharged to home with plan for repeat echocardiogram next week. Would hold off on oral anticoagulation until after repeat echo next week is assessed and if no additional
pericardial fluid is noted oral anticoagulation can then be resumed with a plan to repeat an echocardiogram several days later.
Copy to:
Dr Ellen Virgen
Dr Best Hudson
[2023-10-04] MEDS: TYLENOL 650 MG PO (20:20)
[2023-10-04] MEDS: CRESTOR 20 MG PO (22:27)
[2023-10-05] MEDS: ANCEF 5 IV ×2 (00:23→08:52)
--- NOTE | 2023-10-05 00:41 | PTCARENOTE ---
received patient from the seed analysis laboratory assistant at the change of shift. AAOx3. mild pain at PPM site. denies any cp/sob. A paced on tele-60s. bp stable. L chest site-CDI. pressure dressing intact. pericardial drain site intact as well. no new drainage noted in
drain. chest xray completed. reviewed plan of care with patient and verbalized understanding. educated patient to call RN with assistance out of bed-reinforced. call thapa within reach.
[2023-10-05 04:02] VITALS: BP 112/70
[2023-10-05] MEDS: TYLENOL 650 MG PO (04:19)
[2023-10-05 04:41] LABS: Hematocrit 27.7 % (39.0-52.0); Hemoglobin 9.7 g/dL (13.0-18.0); Mean Corpuscular Hgb 31.8 pg (27.0-31.0); Mean Corpuscular Volume 90.8 fL (80.0-94.0); Mean Platelet Volume 10.9 fL (7.4-10.4); Platelet Count 139 10^3/uL (130-400); Red Blood Cell Count 3.05 10^6/uL (4.70-6.10); Red Cell Dist. Width 13.9 % (11.5-14.5); White Blood Cell Count 6.2 10^3/uL (4.8-10.8)
[2023-10-05 04:58] LABS: Blood Urea Nitrogen 28 mg/dl (9-20); Calcium 8.7 mg/dl (8.4-10.2); Carbon Dioxide 22 mmol/L (22-30); Chloride 105 mmol/L (98-107); Estimated Creatinine Clearance 96 ml/min; Glucose 109 mg/dl (70-99); Magnesium 2.1 mg/dl (1.6-2.3); Potassium 4.2 mmol/L (3.5-5.1); Sodium 137 mmol/L (135-145); eGFR > 60.00
[2023-10-05 07:13] VITALS: BP 122/70
--- NOTE | 2023-10-05 08:42 | W.PN.CARDCBS ---
Addendum entered and electronically signed by Cheryl Cordova PA-C 10/05/23 15:00:
[id number]
Addendum entered and electronically signed by Mono Hudson DO 10/05/23 10:26:
I saw and examined the patient.
The Quality Assurance Monitor Body's note was reviewed and I agree with the note.
Comment:
GEN: No distress, awake, alert, oriented x3. sitting in chair
HEENT: supple, anicteric, mmm, eomi
LUNGS: CTA B/L, no wheezes/rales
CV: Reg, S1/S2, no murmur
ABD: soft, BS+, NT/ND
EXT: No cyanosis, clubbing, edema
NEURO: Gross non-focal
SKIN: Warm, pink, dry. No rash. pressure dressing to L chest c/d/i. pericardial drain in place
A/P as below
CXR no PTX post device, appropriate function per MDT
APVS on telemetry
Clamp drain in AM, repeat echo pending, if no reaccumulation, tentative removal of drain later today by interventional
Repeat TTE 1 week to further reassess possible fluid with tentative resume OAC at that time
Continue monitor on telemetry
Original Note:
Today's Communication / Plan
-
s/p pericardiocentesis and RA revision 10/03
clamp pericardial drain
repeat echo 10AM
consider pulling drain this afternoon
repeat echo next week to reassess for accumulation and can determine based on results when to resume OAC
Impression / Plan
-
PCP: Nikkie Leigh
Ends Breakage Clerk: Ellen Virgen
Voicer: Mono Hudson
Impression:
Presentation with lightheadedness, presyncope
Large pericardial effusion with evidence of tamponade by echo
Hypotension
Concern for PPM lead malfunction/migration
Anemia
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
Nonobstructive coronary artery disease by cath 05/24/23
Hypertension
Hyperlipidemia
PVCs
Renal cyst
BPH
Echo 07/04/2023: EF 55 to 60%, mild concentric LVH, mild biatrial enlargement, no significant valvular disease, mildly dilated aorta sinus of Valsalva 4.1 cm, ST junction 3.0 cm, ascending ao 3.5 cm
Cardiac catheterization 05/24/2023: Coronary arteries are moderately ectatic in nature with diffuse coronary slow flow which improves with intracoronary nitroglycerin. Proximal RCA has a 60 to 70% focal napkin ring-type stenosis which is IFR
negative at 0.96. 40 to 50% distal RCA stenosis. There is 50 to 60% ostial D2 stenosis which is a small caliber vessel. Mildly elevated LVEDP at 16 mmHg
Plan:
-Patient with recent PPM 09/21/23 presented back to ER with lightheadedness, presyncope, clamminess
-echo 10/03 with evidence of large pericardial effusion and degree of tamponade s/p pericardiocentesis for 310cc 10/03
-s/p removal of RA lead and implantation of new RA lead 10/04/23. continue pressure dressing for now
-remains with pericardial drain in place. 60cc out overnight. clamping drain and plan for repeat echo at 10AM, hopefully can pull thereafter if no significant reaccumulation
-plan for repeat echo next week to reassess and can consider resuming OAC at that time pending results
-d/w nursing
Progress Note - Ends Breakage Clerk
Subjective
Date of Service: October 05, 2023
Reports some mild incisional pain overnight. No recurrent lightheadedness
Objective
Labs:
10/05/23 04:01
10/05/23 04:01
Labs
Hgb 9.7 g/dL (13.0-18.0) L 10/05/23 04:01
Hct 27.7 % (39.0-52.0) L 10/05/23 04:01
Plt Count 139 10^3/uL (130-400) 10/05/23 04:01
Sodium 137 mmol/L (135-145) 10/05/23 04:01
Potassium 4.2 mmol/L (3.5-5.1) 10/05/23 04:01
BUN 28 mg/dl (9-20) H 10/05/23 04:01
Creatinine 0.7 mg/dL (0.7-1.3) 10/05/23 04:01
Glucose 109 mg/dl (70-99) H 10/05/23 04:01
Troponins
10/04/23
06:42
Troponin I 0.014
Vital Signs and I&O:
Vital Signs
Temp Pulse Resp BP Pulse Ox
98.6 F 67 14 112/70 96
10/05/23 07:00 10/05/23 04:15 10/05/23 07:00 10/05/23 04:02 10/05/23 07:00
Vital Signs
Temp Pulse Resp BP Pulse Ox
98.6 F 67 14 112/70 96
10/05/23 07:00 10/05/23 04:15 10/05/23 07:00 10/05/23 04:02 10/05/23 07:00
Intake & Output
10/03/23 10/04/23 10/05/23 10/06/23
07:59 07:59 07:59 07:59
Intake Total 500 / 500 420 / 420
Output Total 50 / 50
Balance 450 / 450 420 / 420
Physical Exam
Physical Exam
GEN: No distress, awake, alert, oriented x3. sitting in chair
HEENT: supple, anicteric, mmm, eomi
LUNGS: CTA B/L, no wheezes/rales
CV: Reg, S1/S2, no murmur
ABD: soft, BS+, NT/ND
EXT: No cyanosis, clubbing, edema
NEURO: Gross non-focal
SKIN: Warm, pink, dry. No rash. pressure dressing to L chest c/d/i. pericardial drain in place
[2023-10-05] MEDS: COZAAR 50 MG PO (08:50)
[2023-10-05] MEDS: TOPROL XL 25 MG PO (08:51)
[2023-10-05] MEDS: COLCHICINE 0.6 MG PO (08:51)
--- NOTE | 2023-10-05 09:12 | PTCARENOTE ---
and Pao Crawley CHAIR TRIMMER in room at 0800, we clamped pericardial drain and will obtain echo at 1000.
--- NOTE | 2023-10-05 10:28 | W.PN.UPDATE ---
Update Note
Progress Note Update
Patient scheduled for follow up echo 10/10/23 @ cardiac services to reeval for reaccumulation of pericardial effusion. if remains trivial, plan to resume eliquis. scheduled for wound check 10/14 @1:40PM at [facility] and tentatively scheduled
for repeat follow up echo study 10/14 @4:00 at [facility] to reeval for reaccumulation on OAC. this appt can be cancelled if not needed or does not fit timeline. He is then scheduled to see Yaz OLEARY in office 10/24 for follow up.
[2023-10-05 11:05] VITALS: BP 123/77
--- NOTE | 2023-10-05 12:10 | CM ---
Chart reviewed. Patient is independent of ADLS, lives with his , 0 DME. Patient currently with no discharge needs. CM to follow
--- NOTE | 2023-10-05 13:27 | W.PN.UPDATE ---
Update Note
Progress Note Update
Pericardial drain removed. ChloraPrep utilized to clean the incision site. Lidocaine used for local anesthetic. Drain pulled without issue.
--- NOTE | 2023-10-05 13:36 | PTCARENOTE ---
Dr. Saenz pulled pericardial drain, dsg. placed, michelle. well.
--- NOTE | 2023-10-05 14:19 | W.DS.TRANS ---
DC Summary - Technical Report Writer
-
Discharge Instructions:
Discharge Diagnosis/Procedures Pericardial effusion post pericardiocentesis and
lead revision
Diet Low Cholesterol
Driving Restrictions No driving for 1 week
Bathing Restrictions OK to Shower
Others Tests follow up echo study 10/10/23 @10:30AM at
cardiac service
Instructions:
Stand-Alone Forms: DC Instructions- Cath/EP Lab
DC Inst - Implanted Device
Changes to Home Medications: Yes
Discharge Medications:
DC Medications w/original date entered in [employer]
losartan 100 mg tablet 50 mg PO DAILY Blood Pressure 03/20/16
ascorbic acid (vitamin C) 500 mg tablet (Vitamin C) 1,000 mg PO DAILY Supplement 05/24/23
ezetimibe 10 mg tablet (Zetia) 10 mg PO DAILY High Cholesterol 05/24/23
oibkvlrdoqv-bcwrlufek-ido C-Mn 500 mg-400 mg capsule 1 cap PO DAILY 05/24/23
multivitamin 2 tab PO DAILY Supplement ##0 05/24/23
omega-3 fatty acids-fish oil 684 mg-1,200 mg capsule,delayed release 1 cap PO DAILY 05/24/23
psyllium 1 packet PO DAILY Constipation 05/24/23
glucosamin 375 mg-chond 300 mg-collagen 50 mg-hyaluronic acid 2 mg cap 2 cap PO DAILY 09/21/23
rosuvastatin 20 mg tablet 20 mg PO HS High Cholesterol 09/21/23
apixaban 5 mg tablet (Eliquis) 5 mg PO BID Blood Clot Prevention/Tx 10/04/23
metoprolol succinate 25 mg tablet,extended release 24 hr 25 mg PO DAILY Heart Disease/Condition 10/04/23
colchicine 0.6 mg tablet 0.6 mg PO BID #60 tabs 10/05/23
Home Medication Changes
Eliquis held until after repeat echo 10/09
Colchicine is new.
Pending Results: Yes
Additional Pending Results:
Pericardial fluid studies
[2023-10-05 14:42] VITALS: BP 120/76
[2023-10-05 15:06] VITALS: BP 120/76
--- NOTE | 2023-10-05 15:17 | PTCARENOTE ---
D/C instructions given to patient, verbalizes understanding. INT x 2 D/C'd, telemetry D/C'd, personal belongings packed and sent home with patient. patient waiting for .
--- NOTE | 2023-10-05 15:27 | PTCARENOTE ---
dry dressing changed on left great toe, site has sutures, no reddness, not tender, no drainage, 4x4, kerlex applied.
--- NOTE | 2023-10-05 15:45 | PTCARENOTE ---
D/C to home via wc accompanied by staff.
== END 2023-10-05 16:21 | disposition home or self-care (01) | DRG 261 ==
LOC: IVU 11:28
PROVIDERS: Internal Medicine; Internal Medicine Cardiovascular Disease; Internal Medicine Interventional Cardiology; Nurse Practitioner Adult Health; ADMITTING PHYSICIAN Internal Medicine Cardiovascular Disease; EMERGENCY PHYSICIAN Student in an Organized Health Care Education/Training Program; FAMILY PHYSICIAN Family Medicine
PROC: 02H63JZ Insertion of Pacemaker Lead into Right Atrium, Percutaneous Approach (ICD-10-PCS; 2023-10-04)
PROC: 02PA0MZ Removal of Cardiac Lead from Heart, Open Approach (ICD-10-PCS; 2023-10-04)
PROC: 0W9D30Z Drainage of Pericardial Cavity with Drainage Device, Percutaneous Approach (ICD-10-PCS; 2023-10-04)
PROC: 0WPDX0Z Removal of Drainage Device from Pericardial Cavity, External Approach (ICD-10-PCS; 2023-10-05)
DX: T82.120A Displacement of cardiac electrode, initial encounter (principal); I30.9 Acute pericarditis, unspecified; I31.4 Cardiac tamponade; Y71.2 Prosthetic and other implants, materials and accessory cardiovascular devices associated with adverse incidents; Y92.9 Unspecified place or not applicable; Y83.8 Other surgical procedures as the cause of abnormal reaction of the patient, or of later complication, without mention of misadventure at the time of the procedure; R55 Syncope and collapse; I48.91 Unspecified atrial fibrillation; R42 Dizziness and giddiness; I10 Essential (primary) hypertension; R53.1 Weakness; R53.83 Other fatigue; R61 Generalized hyperhidrosis; I49.5 Sick sinus syndrome; I44.1 Atrioventricular block, second degree; I25.10 Atherosclerotic heart disease of native coronary artery without angina pectoris; E78.5 Hyperlipidemia, unspecified; N28.1 Cyst of kidney, acquired; N40.0 Benign prostatic hyperplasia without lower urinary tract symptoms; D64.9 Anemia, unspecified; I95.9 Hypotension, unspecified; Z95.0 Presence of cardiac pacemaker; Z79.82 Long term (current) use of aspirin; Z87.891 Personal history of nicotine dependence
CPT/HCPCS: 88305; 93308; 33016; 33216; 33235; 71045; 80048; 80053; 82945; 83615; 83735; 83880; 84157; 84443; 84484; 85014; 85025; 85027; 87015; 87070; 87102; 87116; 87205; 87206; 88112; 88341; 88342; 89051; 93005; 93288; 93306; 96361; 96374; 99285; C1892; C1898

== ENCOUNTER → 2023-10-10 10:29 | Outpatient (REF) | payer MEDICARE, BC, SELFPAY | LOC: RCS 10:29 | PROVIDERS: ATTENDING PHYSICIAN Internal Medicine Cardiovascular Disease; FAMILY PHYSICIAN Family Medicine | DX: I31.39 Other pericardial effusion (noninflammatory) (principal) | CPT/HCPCS: 93308 ==

== ENCOUNTER → 2023-10-15 15:03 | Outpatient (REF) | payer MEDICARE, BC, SELFPAY | LOC: HWRCS 15:03 | PROVIDERS: ATTENDING PHYSICIAN Internal Medicine Cardiovascular Disease; FAMILY PHYSICIAN Family Medicine | DX: I31.39 Other pericardial effusion (noninflammatory) (principal); I30.9 Acute pericarditis, unspecified | CPT/HCPCS: 93308 ==

== ENCOUNTER → 2023-11-15 06:46 | Day surgery (SDC) | payer MEDICARE, BC, SELFPAY ==
[2023-11-15 07:00] VITALS: BMI 30.4
--- NOTE | 2023-11-15 12:38 | ITS.CL.CARDI ---
Ins[employer]ing - Cardioversion
Cardioversion
Procedure Report:
Date of Procedure: 11/15/23
Procedure: Cardioversion
Indication: Symptomatic atrial fibrillation
Performing Physician: Yu Small DO [facility]
Anticoagulation: Eliquis
Device: Medtronic
Technique: The patient was brought to the holding area. Signed informed consent was obtained. A time out was called and performed. The patient was anesthetized by the anesthesia service. Anticoagulation status was reviewed and appropriate. R2 pads
were placed anteriorly and posteriorly. A 200J synchronized biphasic shock restored AV paced rhythm without significant bradycardia. Rhythm confirmed pre and post cardioversion with Medtronic interrogator. There were no complications.
Conclusion: Uncomplicated cardioversion from atrial fibrillation to AV paced rhythm
Recommendation: Routine post cardioversion care. 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
== END ==
LOC: CATH 06:46
PROVIDERS: ATTENDING PHYSICIAN Internal Medicine Cardiovascular Disease; FAMILY PHYSICIAN Family Medicine; OTHER PHYSICIAN Internal Medicine Cardiovascular Disease
DX: I48.91 Unspecified atrial fibrillation (principal); R06.09 Other forms of dyspnea; I44.1 Atrioventricular block, second degree; I49.3 Ventricular premature depolarization; I47.10 Supraventricular tachycardia, unspecified; I25.10 Atherosclerotic heart disease of native coronary artery without angina pectoris; I10 Essential (primary) hypertension; E78.5 Hyperlipidemia, unspecified; Z87.891 Personal history of nicotine dependence; Z79.01 Long term (current) use of anticoagulants
CPT/HCPCS: 92960; 93005

== ENCOUNTER → 2024-04-23 06:43 | Outpatient (REF) | payer MEDICARE, BC, SELFPAY ==
[2024-04-23 08:20] LABS: % Basophils 0.5 % (0-2); % Eosinophils 1.2 % (0-6); % Immature Granulocytes 0.2 % (0-0.5); % Lymphocytes 35.7 % (20.5-51.1); % Neutrophils 52.4 % (42.2-75.2); Absolute Eosinophils 0.1 10^3/uL (0-0.7); Absolute Lymphocytes 1.4 10^3/uL (1.2-3.4); Absolute Monocytes 0.4 10^3/uL (0.1-0.6); Absolute Neutrophils 2.1 10^3/uL (1.4-6.5); Hemoglobin 13.3 g/dL (13.0-18.0); Mean Corp Hgb Conc. 33.3 g/dL (33.0-37.0); Mean Corpuscular Hgb 30.9 pg (27.0-31.0); Mean Platelet Volume 11.1 fL (7.4-10.4); Nucleated Red Blood Cells % 0 % (-); Platelet Count 158 10^3/uL (130-400); Red Cell Dist. Width 13.9 % (11.5-14.5)
[2024-04-23 09:32] LABS: TSH Reflex To Free T4 2.37 uIU/ml (0.47-4.68)
[2024-04-23 09:36] LABS: ALT (SGPT) 24 U/L (0-50); AST (SGOT) 32 U/L (17-59); Albumin 4.4 g/dl (3.5-5.0); Alkaline Phosphatase 88 U/L (38-126); Blood Urea Nitrogen 20 mg/dl (9-20); Calcium 9.5 mg/dl (8.4-10.2); Carbon Dioxide 26 mmol/L (22-30); Chloride 102 mmol/L (98-107); Glucose 95 mg/dl (70-99); HDL Cholesterol 82 mg/dl; LDL Cholesterol, Calculated 69 mg/dl; Potassium 4.3 mmol/L (3.5-5.1); Sodium 138 mmol/L (135-145); Total Bilirubin 0.7 mg/dl (0.2-1.3); Total Cholesterol 164 mg/dl (50-199); Total Protein 6.8 g/dl (6.3-8.2); Triglyceride 67 mg/dl (10-149); Very Low Density Lipoprotein 13 mg/dl (0-30); eGFR > 60.00
== END ==
LOC: REG 06:43
PROVIDERS: ATTENDING PHYSICIAN Family Medicine; REFERRING PHYSICIAN Internal Medicine Cardiovascular Disease
DX: E78.00 Pure hypercholesterolemia, unspecified (principal); I10 Essential (primary) hypertension
CPT/HCPCS: 36415; 80053; 80061; 84443; 85025

== ENCOUNTER 2024-05-16 06:14 | Day surgery (SDC) | payer MEDICARE, BC, SELFPAY | END 2024-05-16 12:06 | disposition home or self-care (01) | LOC: GI 06:14 | PROVIDERS: ATTENDING PHYSICIAN Specialist; FAMILY PHYSICIAN Family Medicine | DX: Z12.11 Encounter for screening for malignant neoplasm of colon (principal); D12.2 Benign neoplasm of ascending colon; K57.30 Diverticulosis of large intestine without perforation or abscess without bleeding; Z86.0101 Personal history of adenomatous and serrated colon polyps; Z79.01 Long term (current) use of anticoagulants | CPT/HCPCS: 45385; 88305 ==

== ENCOUNTER → 2024-09-25 07:10 | Outpatient (REF) | payer MEDICARE, BC, SELFPAY | LOC: RCS 07:10 | PROVIDERS: ATTENDING PHYSICIAN Internal Medicine Cardiovascular Disease; FAMILY PHYSICIAN Family Medicine | DX: R06.09 Other forms of dyspnea (principal) | CPT/HCPCS: 93306 ==